=== PATIENT | female | born 1935 | race Caucasian/White ===

== ENCOUNTER 2022-09-02 16:57 | Observation (INO) ==
[2022-09-02] MEDS ORDERED: SODIUM CHLORIDE 0.9% 1,000 ML IV STA (17:29)
[2022-09-02 18:20] LABS: Basophils % 0.2 % (0.0-0.8); Eosinophils # 0.1 10*3/uL (0.0-0.87); Eosinophils % 2.6 % (0.00-10.9); Hematocrit 38.2 VOL% (35.7-47.0); Hemoglobin 12.7 GM/DL (12.0-16.0); Immature Granulocytes % 0.2 %; Immature Granulocytes Absolute 0.01 #; Lymphocytes % 23.6 % (21.3-54.2); Mean Corpuscular HGB Conc 33.2 GM/DL (32-36); Mean Corpuscular Volume 93.9 FL (87-102); Mean Platelet Volume 9.9 FL (9.6-12.0); Monocytes # 0.3 10*3/uL (0.11-0.8); Neutrophils % 67.4 % (38.7-73.9); Platelet Count 168 T/CUMM (130-400); Red Blood Count 4.07 MC/CUMM (3.8-5.5); Red Cell Distribution Width 12.9 % (9.3-17.3); White Blood Count 4.2 T/CUMM (4-12)
[2022-09-02 18:46] LABS: Bilirubin,Total 0.6 MG/DL (0.20-1.00); Calcium 8.3 MG/DL (8.5-10.1); Osmolality,Calculated 286.8 MOS/KG (273-304); Potassium 3.8 MMOL/L (3.5-5.1); Thyroid Stimulating Hormone 2.35 uIU/ml (0.358-3.74); Total Protein 6.5 G/DL (6.4-8.2)
[2022-09-02] MEDS ORDERED: ONDANSETRON 4 MG/2 ML VIAL IV PRN (19:17)
[2022-09-02] MEDS ORDERED: MORPHINE 2 MG/1 ML SYRINGE IV PRN (19:17)
[2022-09-03 14:34] VITALS: BP 150/84
== END 2022-09-03 15:08 | disposition home health service (06) ==
LOC: EDBD → EDUNIT# → N.ED 16:57 → N.EDINP 16:57 → N.2W 09-03 01:50
PROVIDERS: ADMIT Internal Medicine Geriatric Medicine; ATTEND Internal Medicine Geriatric Medicine